=== PATIENT | female | born 1940 | race Asian ===

== ENCOUNTER 2019-03-09 13:52 | Emergency (ER) | payer MEDICARE, BC ==
[2019-03-09 14:05] VITALS: BP 149/70
--- NOTE | 2019-03-09 14:18 | UC ---
Complaint Female HPI - HPI Summary HPI Summary: 78-year-old female who has had urinary frequency and burning less than 24 hours. She is sexually active with one partner. - History Of Current Complaint Chief Complaint: [facility]U Stated Complaint: URINARY COMPLAINT Time Seen by Provider: 03/09/19 13:59 Hx Obtained From: Patient ?: No Onset/Duration: Gradual Onset Timing: Intermittent Severity Initially: Mild Severity Currently: Mild Pain Intensity: 3 Character: Burning Aggravating Factor(s): Urination Alleviating Factor(s): Nothing Associated Signs And Symptoms: Positive: Negative - Allergies/Home Medications Allergies/Adverse Reactions: Allergies Allergy/AdvReac Type Severity Reaction Status Date / Time codeine Allergy Abdominal Verified 03/09/19 14:04 Pain Sulfa (Sulfonamide Allergy Rash Verified 03/09/19 14:04 Antibiotics) Home Medications: Home Medications Amlodipine Besylate [Norvasc] 1 tab PO DAILY 03/09/19 [History Confirmed ] Anastrozole (NF) [Arimidex (NF)] 1 mg PO DAILY 03/09/19 [History Confirmed 03/09] Atorvastatin* [Lipitor 10 MG*] 1 tab PO DAILY 03/09/19 [History Confirmed ] Cholecalciferol (Vitamin D3) [Vitamin D3] 1 tab PO DAILY 03/09/19 [History Confirmed 03/09/19] FLUoxetine CAP* [Prozac CAP*] 1 tab PO QPM 03/09/19 [History Confirmed 03/09/19] Glucosam/Chondr/Collagn/Hyalur [Glucosamine & Chondroitin Cap] 1 tab PO BID [History Confirmed 03/09/19] Levocetirizine Dihydrochloride [Xyzal] 1 tab PO DAILY PRN 03/09/19 [History Confirmed 03/09/19] Losartan TAB* [Cozaar TAB*] 1 tab PO DAILY 03/09/19 [History Confirmed 03/09/19] Multivitamin [Multivitamins] 1 tab PO DAILY 03/09/19 [History Confirmed 03/09/19 ] PMH/Surg Hx/FS Hx/Imm Hx Previously Healthy: Yes Cardiovascular History: Hypertension GI/ History: Other - Hepatitis A as a child. - Surgical History Surgical History: Yes Surgery Procedure, Year, and Place: right hip replacement. cholecystectomy. right breast mastectomy - Family History Known Family History: Positive: Non-Contributory - Social History Occupation: Retired Alcohol Use: Occasionally Substance Use Type: None Smoking Status (MU): Never Smoked Tobacco Review of Systems All Other Systems Reviewed And Are Negative: Yes Genitourinary: Positive: Dysuria, Frequency, Urgency Is Patient Immunocompromised?: No Physical Exam Triage Information Reviewed: Yes Appearance: Well-Appearing, No Pain Distress, Well-Nourished Vital Signs: Initial Vital Signs Temp 97.5 F 03/09/19 13:55 Pulse 66 03/09/19 13:55 Resp 18 03/09/19 13:55 BP 149/70 03/09/19 13:55 Pulse Ox 97 03/09/19 13:55 Vital Signs Reviewed: Yes Respiratory: Positive: Lungs clear, Normal breath sounds, No respiratory distress, No accessory muscle use Cardiovascular: Positive: RRR, No Murmur, Pulses Normal, Brisk Capillary Refill Abdomen Description: Positive: Nontender, No Organomegaly, Soft. Negative: CVA Tenderness (R), CVA Tenderness (L), Distended, Guarding, Hepatomegaly, McBurney' s Point Tenderness, Splenomegaly Bowel Sounds: Positive: Present Musculoskeletal Exam: Normal Neurological Exam: Normal Psychological Exam: Normal Skin Exam: Normal Complaint Female Dx - Course Course Of Treatment: The patient is comfortable here. Because of her sulfa allergy I'm going to treat her with cephalexin 250 mg by mouth 3 times a day 10 days. She will follow up with her primary care provider to have her urine rechecked in about 2 weeks to make sure the infection is cleared. The nurse did report that when she was asking the patient about feeling safe or if she felt like hurting herself or anyone else the patient jokingly said yes as far as hurting someone else. When I discussed this with her she laughed and stated that she was joking and had no one in mind when she said that. - Differential Dx/Diagnosis Provider Diagnosis: UTI (urinary tract infection) Discharge ED - Sign-Out/Discharge Documenting (check all that apply): Patient Departure All imaging exams completed and their final reports reviewed: No Studies - Discharge Plan Condition: Good Disposition: HOME Prescriptions: Cephalexin CAP* [Keflex 250 CAP*] 250 mg PO TID 10 Days #30 cap Patient Education Materials: Urinary Tract Infection in Older Adults (ED) Referrals: Solis Beatty MD [Primary Care Provider] - Additional Instructions: Increase fluids. Follow-up with your primary care provider in 3 or 4 days if no improvement. Go to the emergency room if you develop fever, chills, backache or worsening symptoms or unable keep the medicine down. You may follow -up with your primary care provider in approximately 2 weeks to recheck her urine to make sure the infection has cleared, that only needs to be a nurse visit. - Billing Disposition and Condition Condition: GOOD Disposition: Home
== END 2019-03-09 14:23 | disposition home or self-care (01) ==
LOC: UCEAST 13:52
DX: N39.0 Urinary tract infection, site not specified (principal); I10 Essential (primary) hypertension; Z88.5 Allergy status to narcotic agent; Z88.2 Allergy status to sulfonamides; Z79.899 Other long term (current) drug therapy
CPT/HCPCS: 81003; 87077; 87086; 87186; 99212; G0463